=== PATIENT | male | born 1935 | race Caucasian/White ===

== ENCOUNTER 2020-03-13 08:48 | Emergency (ER) | payer OTHER ==
--- NOTE | 2020-03-13 09:28 | PDOC ---
History of Present Illness - General Chief Complaint: Pain Stated Complaint: PEG TUBE CHANGE Time Seen by Provider: 03/13/20 09:18 - History of Present Illness Initial Comments: 03/13/20 09:23 Chief complaint: PEG tube leaking. Placed May 2018. HPI: Patient with severe dementia, brought in by his son for a leaking PEG tube. Has been leaking along its entire length for several weeks. Patient gets feedings and medication through the tube, because he has severe dementia and it is difficult to get him to eat. No vomiting, diarrhea, or abdominal pain. No weight loss. Review of systems: No signs of illness including chest pain, shortness of breath, abdominal pain, nausea, vomiting, diarrhea, change in mental status, change in neurologic status. Still ambulates on a limited basis with a walker and with assistance. Minimal verbal communication Past medical history: Severe dementia, as noted above. No cardiovascular disease. No pulmonary disease. No renal disease. According to his son Social/family history as noted above. Otherwise negative Physical exam: Patient is awake but does not respond verbally. Afebrile, vital signs normal HEENT clear Neck supple without bruit mass or nodes Lungs clear CV regular without murmur rub or gallop. 68 and regular Abdomen nondistended. Bowel sounds normal. Soft without mass tenderness organomegaly. PEG tube is in place. There is no leakage around the site of implantation and no skin changes/inflammation Impression: Leakage along the length of the PEG tube Plan: Dr. Ck bansal for consultation. He examined patient, replaced the PEG tube without difficulty. Patient tolerated well. No complications. Discharged with son to follow-up as directed. Past History - Medical History COPD: No Thyroid Disease: (lEWY bODY DEMENTIA) - Surgical History GI Surgery: Yes (PEG TUBE PLACEMENT) - Immunization History Immunization Up to Date: Yes - Psycho-Social/Smoking History Smoking History: Never smoked Have you smoked in the past 12 months: No Information on smoking cessation initiated: No - Substance Abuse Hx (Audit-C & DAST Scrn) How often the patient has a drink containing alcohol: Never Score: In Men: 4 or > Positive; In Women: 3 or > Positive: 0 Screen Result (Pos requires Nsg. Audit-10AR): Negative In the last yr the pt used illegal drug/Rx for NonMed reason: No Score: Yes response is considered Positive: 0 Screen Result (Positive result requires Nsg. DAST-10): Negative *Physical Exam - Vital Signs Last Vital Signs Temp Pulse Resp BP Pulse Ox 97.8 F 72 18 123/62 100 03/13/20 09:00 03/13/20 09:00 03/13/20 09:00 03/13/20 09:00 03/13/20 09:00 Discharge - Discharge Information Problems reviewed: Yes Clinical Impression/Diagnosis: Leaking PEG tube Condition: Improved Disposition: HOME - Admission No - Follow up/Referral - Patient Discharge Instructions Patient Printed Discharge Instructions: How to Care for Your PEG Tube - Post Discharge Activity
--- OUTSIDE RECORDS SUMMARY | 2020-03-13 09:28 | XMS ---
:1935 Author Organization [facility] Support Name Relationship Address Phone RE Unavailable Unavailable Unavailable OJ GARCIA SON [address] [facility] [phone] [place] [address] Re-disclosure Warning The records that you are about to access may contain information from federally- assisted alcohol or drug abuse programs. If such information is present, then the following federally mandated warning applies: This information has been disclosed to you from records protected by federal confidentiality rules (42 CFR part 2). The federal rules prohibit you from making any further disclosure of this information unless further disclosure is expressly permitted by the written consent of the person to whom it pertains or as otherwise permitted by 42 CFR part 2. A general authorization for the release of medical or other information is NOT sufficient for this purpose. The Federal rules restrict any use of the information to criminally investigate or prosecute any alcohol or drug abuse patient.The records that you are about to access may contain highly sensitive health information, the redisclosure of which is protected by Article 27-F of the [facility] Public Health law. If you continue you may haveaccess to information: Regarding HIV / AIDS; Provided by facilities licensed or operated by the [facility] Office of Mental Health; or Provided by the [facility] Office for People With Developmental Disabilities. If such information is present, then the following [facility] mandated warning applies: This information has been disclosed to you from confidential records which are protected by state law. State law prohibits you from making any further disclosure of this information without the specific written consent of the person to whom it pertains, or as otherwise permitted by law. Any unauthorized further disclosure in violation of state law may result in a fine or assisted sentence or both. A general authorization for the release of medical or other information is NOT sufficient authorization for further disclosure. Insurance Providers Payer name Policy type Policy ID Covered Covered republican's Policy P farrah / Coverage republican ID relationship to Carreon Inf ormation type carreon [employer] [id number] SP [id number] MEDICARE
[2020-03-13 09:29] VITALS: BP 123/62; PULSE 72; TEMP 97.6; BMI 22.3
== END 2020-03-13 09:40 | disposition home or self-care (01) ==
LOC: FER 08:48
DX: R00.2 Palpitations (principal)
CPT/HCPCS: 99284-25

== ENCOUNTER 2020-08-19 12:46 | Emergency (ER) | payer OTHER ==
[2020-08-19 13:26] VITALS: BP 142/64; PULSE 68; TEMP 97.4; BMI 21.9
== END 2020-08-19 15:20 | disposition home or self-care (01) ==
LOC: FER 12:46
DX: K94.23 Gastrostomy malfunction (principal)
CPT/HCPCS: 74018-TC-FY; 99283-25

== ENCOUNTER 2022-06-19 13:03 | Emergency (ER) | payer OTHER ==
[2022-06-19 14:35] VITALS: BP 135/54; PULSE 68; RESP 20; TEMP 98.1
== END 2022-06-19 16:53 | disposition home or self-care (01) ==
LOC: FER 13:03
DX: K94.23 Gastrostomy malfunction (principal)
CPT/HCPCS: 74019-TC-FY; 74021-TC-FY; 99283-25